=== PATIENT | female | born 1960 | race Two or more races ===

== ENCOUNTER 2017-07-15 16:12 | Inpatient (IN) | payer OTHER ==
[~2017-07-15] VITALS: Ht 162.6 cm; Wt 96.2 kg
--- NOTE | 2017-07-15 16:39 | NUR ---
PT IS IN ROOM 32B. DR CASTRO EVALUATED THE PT.
[2017-07-15] MEDS ORDERED: CYCL10TA9 PO (17:12)
[2017-07-15] MEDS ORDERED: GABA-532 PO (17:12)
[2017-07-15] MEDS ORDERED: INSU100V28 SQ (17:12)
[2017-07-15] MEDS ORDERED: HYDR-552 PO (17:12)
[2017-07-15] MEDS ORDERED: INSU100V7 SQ (17:12)
[2017-07-15] MEDS ORDERED: NPH,100I SQ (17:12)
[2017-07-15] MEDS ORDERED: CLIN300C11 PO (17:12)
--- NOTE | 2017-07-15 18:45 | NUR ---
REPORT GIVEN TO MHU RN BLAYNE, PT IS RESTING IN BED COMFORTABLY. NO S/S OF ACUTE DISTRESS. CONTINUE TO MONITOR THE PT.
--- NOTE | 2017-07-15 19:21 | NUR ---
REPORT GIVEN TO DOLPHIN TRAINER RN
--- NOTE | 2017-07-15 19:38 | NUR ---
Pt is noted resting in bed with no s/s off distress as report is received from the off going nurse that pt is been admitted as he is on a 5150 Hold for Depression with Suicidal Ideation and came from the another facility. His care continue as he will be rolled up to the 4th floor.
--- NOTE | 2017-07-15 19:50 | NUR ---
Pt is been rolled up to the 4th floor with no s/s off distress or c/o/
[2017-07-15 20:00] VITALS: BP 125/74
[2017-07-15] MEDS ORDERED: ACETAMINOPHEN 325 MG TABLET PO PRN (21:00)
[2017-07-15] MEDS ORDERED: MAGNESIUM HYDROXIDE 30 ML LIQUID UDC PO PRN (21:00)
[2017-07-15] MEDS ORDERED: MAG HYDROX/AL HYDROX/SIMETH 30 ML LIQUID UDC PO PRN (21:00)
--- NOTE | 2017-07-15 22:00 | NUR ---
received to care, from the emergency room, on a 72 hour hold for danger to self. according to the chart, he lives by himself. recently estranged from his . he was found last night by his family lying down 2 empty pill bottles with the labels removed, and under the influence of alcohol. he is currently going through a divorce. he has been from his for 3 years, but she recently filed for divorce. he was at a family gathering yesterday, and tried to reconcile with his , but he stormed out of there abruptly, and went home. his niece reported that he stated he was going to kill himself on 07/15, but decided to do it sooner, because "nobody loves me". the daughter also reported that he threatened to kill himself with "a bullet". pt was also hospitalized last week, after a previous serious overdose attempt. upon arrival on the unit, he was very pleasant and cooperative. denied any suicidal ideations now, or in the past, stating only that he "got drunk" pt agreed to contract for safety. did not want his family notified at this time. as of 2199, he appears to be asleep, in bed. no distress noted. will continue to monitor closely.
[2017-07-15] MEDS ORDERED: TEMAZEPAM 7.5 MG CAPSULE PO PRN (22:15)
[2017-07-15] MEDS ORDERED: CLONAZEPAM 0.5 MG TABLET PO PRN (22:15)
[2017-07-15] MEDS ORDERED: HYDROCODONE/APAP 5-325MG TABLET PO PRN (23:30)
[2017-07-15] MEDS ORDERED: DEXTROSE 50% 50 ML DISP.SYRIN IV PRN (23:30)
[2017-07-16] MEDS ORDERED: TRAM50TA2 PO (00:15)
[2017-07-16] MEDS: BLOOD SUGAR DIAGNOSTIC 1 EACH STRIP VI SCH ×4 (06:45→21:30)
--- NOTE | 2017-07-16 06:52 | NUR ---
slept 7.45 hours, total. is now awake. assisted with am care, and shower. no distress noted.
[2017-07-16 07:30] VITALS: BP 133/82
[2017-07-16 08:23] LABS: THYROID STIMULATING HORMONE 1.022 mIU/mL (0.358-3.740)
[2017-07-16] MEDS: INSULIN REGULAR, HUMAN 300 UNIT/3 ML VIAL SQ PRN ×4 (08:31→21:23)
[2017-07-16 08:34] LABS: BASOPHILS % (AUTO) 0.3 % (0.0-2.0); EOSINOPHILS # (AUTO) 0.2 K/uL (0.0-0.7); EOSINOPHILS % (AUTO) 3.1 % (0.0-7.0); HEMATOCRIT 47.4 % (31.2-41.9); HEMOGLOBIN 16.4 g/dL (10.9-14.3); MEAN CORPUSCULAR HEMOGLOBIN 31.3 uug (24.7-32.8); MEAN CORPUSCULAR HGB CONC 35 g/dL (32.3-35.6); MEAN CORPUSCULAR VOLUME 90.6 fL (75.5-95.3); MONOCYTES # (AUTO) 0.5 K/uL (2.0-10.0); MONOCYTES % (AUTO) 6.4 % (0.0-11.0); NEUTROPHILS # (AUTO) 4.9 K/uL (1.8-8.9); NEUTROPHILS % (AUTO) 64.2 % (38.5-71.5); PLATELET COUNT (AUTO) 288 K/uL (179-408); RED BLOOD CELL COUNT(AUTO) 5.23 MIL/uL (3.63-4.92); WHITE BLOOD COUNT (AUTO) 7.7 K/uL (3.8-11.8)
[2017-07-16 08:56] LABS: BILIRUBIN,TOTAL 0.5 mg/dL (0.2-1.0); CREATININE 0.9 mg/dL (0.6-1.3); PHOSPHOROUS 3.2 mg/dL (2.5-4.9); POTASSIUM 4.8 mmol/L (3.5-5.1); TOTAL PROTEIN, SERUM 7.1 g/dL (6.4-8.2)
[2017-07-16] MEDS: GABAPENTIN 100 MG CAPSULE PO SCH ×3 (09:00→17:20)
[2017-07-16] MEDS: DULOXETINE 30 MG CAPSULE.DR PO SCH (12:05)
--- NOTE | 2017-07-16 13:13 | NUR ---
Initial DC Plan:Patient currently resides in his home [address] [place] [address] ([phone]) alone.Patient stated that he wants to go back to his home. SW will follow up with MD and patient to discuss most appropriate discharge plans. SW will form a safe and proper discharge
[2017-07-16 17:23] VITALS: BP 114/73
[2017-07-16 20:00] VITALS: BP 97/44
--- NOTE | 2017-07-16 22:00 | NUR ---
received to care, lying in bed, but pleasant when approached. compliant with medications, and staff direction. as of 2199, he appears to be asleep. no distress noted. will continue to monitor closely.
[2017-07-17] MEDS: BLOOD SUGAR DIAGNOSTIC 1 EACH STRIP VI SCH ×4 (06:35→20:10)
[2017-07-17 07:30] VITALS: BP 114/67
[2017-07-17] MEDS: GABAPENTIN 100 MG CAPSULE PO SCH ×3 (08:41→17:00)
[2017-07-17] MEDS: DULOXETINE 30 MG CAPSULE.DR PO SCH (08:41)
[2017-07-17] MEDS: METFORMIN HCL 500 MG TABLET PO SCH ×2 (08:41→17:00)
[2017-07-17] MEDS: glipiZIDE 5 MG TABLET PO SCH ×2 (08:42→17:00)
[2017-07-17] MEDS: INSULIN REGULAR, HUMAN 300 UNIT/3 ML VIAL SQ PRN ×4 (08:48→20:29)
--- NOTE | 2017-07-17 14:58 | NUR ---
Patient is observed in dayroom watching TV, alert and oriented x4 and indicated that he is doing well. Denies HI/SI, states "people says it but not me," no AVH noted and c/o pain to his legs 10. Patient remains pleasant during assessment with no apparent distress noted, will continue to monitor for safety and support.
[2017-07-17 15:47] VITALS: BP 107/73
--- NOTE | 2017-07-17 20:00 | NUR ---
PT RECEIVED IN HIS ROOM, AWAKE, WITHDRAWN, NO INTERACTION WITH PEERS NOTED, DENIES SI/HI/PAIN, ABLE TO MAKE NEEDS KNOWN, WILL CONTINUE TO MONITOR CLOSELY.
[2017-07-17 20:41] VITALS: BP 103/66
[2017-07-18] MEDS: BLOOD SUGAR DIAGNOSTIC 1 EACH STRIP VI SCH ×4 (06:49→20:27)
[2017-07-18 07:30] VITALS: BP 135/86
[2017-07-18] MEDS: glipiZIDE 5 MG TABLET PO SCH ×2 (07:44→17:18)
[2017-07-18] MEDS: METFORMIN HCL 500 MG TABLET PO SCH ×2 (08:19→17:18)
[2017-07-18] MEDS: GABAPENTIN 100 MG CAPSULE PO SCH ×3 (08:19→17:18)
[2017-07-18] MEDS: DULOXETINE 30 MG CAPSULE.DR PO SCH (08:19)
[2017-07-18] MEDS: INSULIN REGULAR, HUMAN 300 UNIT/3 ML VIAL SQ PRN ×4 (08:20→20:30)
--- NOTE | 2017-07-18 08:42 | NUR ---
Firearms Report: Reel System Operator completed and submitted [facility] Firearms Report on 07/18/17.
[2017-07-18] MEDS ORDERED: INSULIN REGULAR, HUMAN 300 UNITS/3 ML VIAL SQ PRN (11:15)
[2017-07-18] MEDS ORDERED: DEXTROSE 50% 50 ML DISP.SYRIN IV PRN (11:15)
[2017-07-18 15:12] VITALS: BP 122/75
--- NOTE | 2017-07-18 15:25 | NUR ---
UR Note: Left message for [employer] [employer] [facility] ([phone]) informing her that MD progress notes are not in yet. Authorization#[id number] through 07/18/17. Doormaker will follow-up and fax clinicals ([phone]) when progress notes are available.
--- NOTE | 2017-07-18 20:00 | NUR ---
PT RECEIVED IN HIS ROOM VISITING WITH FAMILY MEMBERS, AND LATER IN THE DAY ROOM WATCHING TV AND SOCIALIZING WITH SELECTED PEER, PT IS MORE PLEASANT, MORE TALKATIVE, MAKING NEEDS KNOWN, DENIES SI/HI, COMPLIANT WITH TREATMENT, BEDTIME MEDS GIVEN, CONTINUE TO MONITOR CLOSELY.
[2017-07-18 20:41] VITALS: BP 128/70
[2017-07-19] MEDS: BLOOD SUGAR DIAGNOSTIC 1 EACH STRIP VI SCH ×4 (06:40→21:16)
[2017-07-19 07:30] VITALS: BP 117/73
--- NOTE | 2017-07-19 08:05 | NUR ---
UR Note: Faxed clinicals to [facility] ([phone]). Authorization#:[id number] through 07/18/17. Awaiting further authorization.
[2017-07-19] MEDS: GABAPENTIN 100 MG CAPSULE PO SCH ×3 (08:25→17:37)
[2017-07-19] MEDS: glipiZIDE 5 MG TABLET PO SCH (08:25)
[2017-07-19] MEDS: METFORMIN HCL 500 MG TABLET PO SCH ×2 (08:25→17:37)
[2017-07-19] MEDS: DULOXETINE 30 MG CAPSULE.DR PO SCH (08:25)
[2017-07-19] MEDS: INSULIN REGULAR, HUMAN 300 UNIT/3 ML VIAL SQ PRN ×2 (08:27→12:32)
[2017-07-19 08:58] LABS: BASOPHILS % (AUTO) 0.3 % (0.0-2.0); EOSINOPHILS # (AUTO) 0.1 K/uL (0.0-0.7); EOSINOPHILS % (AUTO) 0.9 % (0.0-7.0); HEMATOCRIT 47.5 % (31.2-41.9); HEMOGLOBIN 16.2 g/dL (10.9-14.3); LYMPHOCYTES # (AUTO) 2.4 K/uL (20.0-40.0); LYMPHOCYTES % (AUTO) 17.4 % (20.5-51.5); MEAN CORPUSCULAR HEMOGLOBIN 30.6 uug (24.7-32.8); MEAN CORPUSCULAR HGB CONC 34 g/dL (32.3-35.6); MEAN CORPUSCULAR VOLUME 89.8 fL (75.5-95.3); MONOCYTES # (AUTO) 0.9 K/uL (2.0-10.0); MONOCYTES % (AUTO) 6.5 % (0.0-11.0); NEUTROPHILS # (AUTO) 10.4 K/uL (1.8-8.9); NEUTROPHILS % (AUTO) 74.9 % (38.5-71.5); PLATELET COUNT (AUTO) 299 K/uL (179-408); RED BLOOD CELL COUNT(AUTO) 5.29 MIL/uL (3.63-4.92)
[2017-07-19 09:07] LABS: BILIRUBIN,TOTAL 0.9 mg/dL (0.2-1.0); CREATININE 0.8 mg/dL (0.6-1.3); MAGNESIUM 1.8 mg/dL (1.8-2.4); PHOSPHOROUS 3.2 mg/dL (2.5-4.9); POTASSIUM 4.6 mmol/L (3.5-5.1); TOTAL PROTEIN, SERUM 7.7 g/dL (6.4-8.2)
[2017-07-19 09:12] LABS: WHITE BLOOD COUNT (AUTO) 13.9 K/uL (3.8-11.8)
[2017-07-19 15:00] VITALS: BP 118/73
--- NOTE | 2017-07-19 16:01 | NUR ---
UR Note: Received voicemail from [facility], Courtney Tobin ([phone]). Left message to discuss PHP options for pt upon discharge. Will follow-up.
[2017-07-19] MEDS: glipiZIDE 10 MG TABLET PO SCH (17:36)
--- NOTE | 2017-07-19 18:37 | NUR ---
PATIENT VISIBLE ON UNIT AND INTERACTING WITH SELECT PEERS IN DAY ROOM DENIES S.I. OR ANY PLANS TO HURT SELF OR ANYONE ELSE . ACCUCHECKS WNL WITH SS COVERAGE NEEDED .CONTINUE TO MONITOR FOR SAFETY
[2017-07-19 19:36] LABS: *BILIRUBIN,URIN NEGATIVE (NEGATIVE); *BLOOD, URINE NEGATIVE (NEGATIVE); *CLARITY,URINE CLEAR (CLEAR); *COLOR,URINE YELLOW (YELLOW); *KETONES,URINE TRACE (NEGATIVE); *PROTEIN,URINE TRACE (NEGATIVE); *UROBILINOGEN,URINE 0.2 E.U./dl (NORMAL); LEUKOCYTE ESTERASE ,URINE NEGATIVE (NEGATIVE); NITRITE, URINE NEGATIVE (NEGATIVE); PH,URINE 5.5 (5.0-8.0); UGLUCOSE NEGATIVE (NEGATIVE)
[2017-07-19 19:41] LABS: BACTERIA,URINE FEW /HPF (NONE SEEN); RBC,URINE 0-3 /HPF (0-3); SQUAMOUS EPITHELIAL CELL,UR FEW /HPF (NONE SEEN); WBC,URINE 0-3 /HPF (0-3)
[2017-07-19 20:36] VITALS: BP 143/85
[2017-07-20] MEDS: BLOOD SUGAR DIAGNOSTIC 1 EACH STRIP VI SCH ×4 (06:41→21:04)
[2017-07-20 07:30] VITALS: BP 135/74
[2017-07-20] MEDS: METFORMIN HCL 500 MG TABLET PO SCH ×2 (08:42→17:39)
[2017-07-20] MEDS: DULOXETINE 30 MG CAPSULE.DR PO SCH (08:42)
[2017-07-20] MEDS: glipiZIDE 10 MG TABLET PO SCH ×2 (08:42→17:40)
[2017-07-20] MEDS: GABAPENTIN 100 MG CAPSULE PO SCH ×3 (08:42→17:39)
[2017-07-20] MEDS: INSULIN REGULAR, HUMAN 300 UNIT/3 ML VIAL SQ PRN ×3 (08:44→17:42)
[2017-07-20 09:52] LABS: CREATININE 0.7 mg/dL (0.6-1.3); POTASSIUM 4.1 mmol/L (3.5-5.1)
[2017-07-20 10:29] LABS: BASOPHILS % (AUTO) 0.4 % (0.0-2.0); EOSINOPHILS # (AUTO) 0.2 K/uL (0.0-0.7); EOSINOPHILS % (AUTO) 1.6 % (0.0-7.0); HEMATOCRIT 48.5 % (31.2-41.9); HEMOGLOBIN 16.3 g/dL (10.9-14.3); LYMPHOCYTES # (AUTO) 2.3 K/uL (20.0-40.0); LYMPHOCYTES % (AUTO) 20.1 % (20.5-51.5); MEAN CORPUSCULAR HEMOGLOBIN 30.4 uug (24.7-32.8); MEAN CORPUSCULAR HGB CONC 34 g/dL (32.3-35.6); MEAN CORPUSCULAR VOLUME 90.7 fL (75.5-95.3); MONOCYTES # (AUTO) 0.8 K/uL (2.0-10.0); MONOCYTES % (AUTO) 7.1 % (0.0-11.0); NEUTROPHILS % (AUTO) 70.8 % (38.5-71.5); PLATELET COUNT (AUTO) 285 K/uL (179-408); RED BLOOD CELL COUNT(AUTO) 5.35 MIL/uL (3.63-4.92); WHITE BLOOD COUNT (AUTO) 11.2 K/uL (3.8-11.8)
[2017-07-20] MEDS ORDERED: DEXTROSE 50% 50 ML DISP.SYRIN IV PRN (14:15)
[2017-07-20 17:03] VITALS: BP 123/73
[2017-07-20 20:00] VITALS: BP 128/76
[2017-07-20] MEDS: INSULIN REGULAR, HUMAN 300 UNITS/3 ML VIAL SQ PRN (21:08)
[2017-07-21] MEDS: BLOOD SUGAR DIAGNOSTIC 1 EACH STRIP VI SCH ×4 (06:40→20:06)
[2017-07-21 07:30] VITALS: BP 121/61
[2017-07-21] MEDS: GABAPENTIN 100 MG CAPSULE PO SCH ×3 (08:13→16:44)
[2017-07-21] MEDS: DULOXETINE 30 MG CAPSULE.DR PO SCH ×2 (08:13→16:44)
[2017-07-21] MEDS: glipiZIDE 10 MG TABLET PO SCH ×2 (08:13→16:46)
[2017-07-21] MEDS: METFORMIN HCL 500 MG TABLET PO SCH ×2 (08:13→17:02)
[2017-07-21] MEDS: INSULIN REGULAR, HUMAN 300 UNIT/3 ML VIAL SQ PRN ×3 (08:14→16:43)
[2017-07-21 17:22] VITALS: BP 138/72
[2017-07-21] MEDS: INSULIN REGULAR, HUMAN 300 UNITS/3 ML VIAL SQ PRN (20:09)
[2017-07-22] MEDS: BLOOD SUGAR DIAGNOSTIC 1 EACH STRIP VI SCH ×4 (06:45→20:53)
[2017-07-22 08:02] VITALS: BP 118/52
[2017-07-22] MEDS: INSULIN REGULAR, HUMAN 300 UNIT/3 ML VIAL SQ PRN ×2 (08:24→17:27)
[2017-07-22] MEDS: DULOXETINE 30 MG CAPSULE.DR PO SCH ×2 (08:45→16:04)
[2017-07-22] MEDS: METFORMIN HCL 500 MG TABLET PO SCH ×2 (08:45→17:02)
[2017-07-22] MEDS: GABAPENTIN 100 MG CAPSULE PO SCH ×3 (08:45→16:04)
[2017-07-22] MEDS: glipiZIDE 10 MG TABLET PO SCH ×2 (08:58→16:34)
[2017-07-22 16:07] VITALS: BP 138/82
[2017-07-22 21:19] VITALS: BP 120/71
[2017-07-23] MEDS: BLOOD SUGAR DIAGNOSTIC 1 EACH STRIP VI SCH ×4 (06:38→21:47)
[2017-07-23 07:30] VITALS: BP 109/71
[2017-07-23] MEDS: glipiZIDE 10 MG TABLET PO SCH ×2 (08:18→17:02)
[2017-07-23] MEDS: METFORMIN HCL 500 MG TABLET PO SCH ×2 (08:18→17:02)
[2017-07-23] MEDS: DULOXETINE 30 MG CAPSULE.DR PO SCH ×3 (08:19→20:36)
[2017-07-23] MEDS: GABAPENTIN 100 MG CAPSULE PO SCH ×3 (08:19→17:02)
[2017-07-23] MEDS: INSULIN REGULAR, HUMAN 300 UNITS/3 ML VIAL SQ PRN (08:26)
[2017-07-23] MEDS: INSULIN REGULAR, HUMAN 300 UNIT/3 ML VIAL SQ PRN ×3 (08:43→17:01)
--- NOTE | 2017-07-23 08:54 | NUR ---
UR Note: STEPHANIE spoke with Injection Molding Operator Linn at [facility] (ph:[phone]) for concurrent review. Provided clinicals, treatment plan and D/C plan. AUTH#[id number] for 3 additional days with concurrent review on 07/26/16. STEPHANIE will follow-up.
[2017-07-23] MEDS ORDERED: SITAGLIPTIN PHOSPHATE 50 MG TABLET PO SCH (09:00)
[2017-07-23] MEDS: LINAGLIPTIN 5 MG TABLET PO SCH (10:04)
[2017-07-23 16:00] VITALS: BP 136/80
[2017-07-23 20:15] VITALS: BP 140/75
[2017-07-24] MEDS: BLOOD SUGAR DIAGNOSTIC 1 EACH STRIP VI SCH ×4 (06:49→20:45)
[2017-07-24] MEDS: LINAGLIPTIN 5 MG TABLET PO SCH (07:04)
[2017-07-24] MEDS: glipiZIDE 10 MG TABLET PO SCH ×2 (07:04→17:39)
[2017-07-24] MEDS: METFORMIN HCL 500 MG TABLET PO SCH ×2 (07:04→17:39)
[2017-07-24 08:00] VITALS: BP 141/82
[2017-07-24] MEDS: GABAPENTIN 100 MG CAPSULE PO SCH ×3 (08:24→17:39)
[2017-07-24] MEDS: DULOXETINE 30 MG CAPSULE.DR PO SCH ×2 (08:24→20:39)
[2017-07-24] MEDS: INSULIN REGULAR, HUMAN 300 UNIT/3 ML VIAL SQ PRN ×3 (08:28→17:42)
[2017-07-24 16:00] VITALS: BP 129/71
[2017-07-24 20:06] VITALS: BP 123/79
[2017-07-25] MEDS: BLOOD SUGAR DIAGNOSTIC 1 EACH STRIP VI SCH ×2 (06:35→11:45)
--- NOTE | 2017-07-25 06:46 | NUR ---
GPS: Renitaian calm and cooperative with medications care. blood sugar 169 mg/dl this morning. slept 05:30 hrs through the night. no agitation noted. continue plan of care.
[2017-07-25 07:30] VITALS: BP 124/76
[2017-07-25] MEDS: INSULIN REGULAR, HUMAN 300 UNIT/3 ML VIAL SQ PRN ×2 (08:32→11:54)
[2017-07-25] MEDS: METFORMIN HCL 500 MG TABLET PO SCH (08:33)
[2017-07-25] MEDS: glipiZIDE 10 MG TABLET PO SCH (08:33)
[2017-07-25] MEDS: LINAGLIPTIN 5 MG TABLET PO SCH (08:33)
[2017-07-25] MEDS: DULOXETINE 30 MG CAPSULE.DR PO SCH (08:33)
[2017-07-25] MEDS: GABAPENTIN 100 MG CAPSULE PO SCH ×2 (08:39→12:22)
--- NOTE | 2017-07-25 11:43 | NUR ---
DC Note: Patient will be discharged home with his daughter [[address], [place] [address]; [phone]] via private transportation at 1 pm. Spoke with pts daughters Lidia and Sharon who are willing to provide transportation and are aware and agreeable with discharge plans. Patient is aware and agreeable with discharge plans. Patient will make an appointment to follow-up with his Primary Care Physician Dr. Jaskaran Levine [[address], [place] [address]; [phone]]. Pt also has a follow-up appointment with his Psychiatrist Dr. Javi Nolasco [[address], [address] [place] [address]; ] on August 10, 2017 at 10:15am. Patient also has a follow-up appointment with Kami Bo LCSW [[facility][1] [address] , [place] [address]; ] on August 22, 2017 at 11:45am. Patient was provided with a brief substance abuse intervention and referred to [facility] , [facility] , and [facility] . Pt was also provided with additional outpatient mental health services. The List includes: [facility] Crisis Line; ; Leanna Rachel ; National Suicide Prevention Lifeline . Addendum: 07/25/17 at 1148 by AMERICO BROWN Pt was also encouraged to present to [facility] at 9am for intake screening. Addendum: 07/25/17 at 1221 by AMERICO MORAN SW Card Services Specialist received call from [place] After[facility] Coordinator informing that pt must call [employer] ([phone]) to schedule Psychiatrist and Therapist appointments for 5 days within discharge. Pt made aware of changes and is agreeable. Per Courtney ([phone]), all prior follow-up appointments were cancelled.
== END 2017-07-25 13:30 | disposition home or self-care (01) | DRG 885 ==
LOC: ER 16:12 → GPSOV 19:44 → GPS 21:34
PROVIDERS: ADMIT Psychiatry & Neurology Psychiatry; ATTEND Internal Medicine
DX: F33.2 Major depressive disorder, recurrent severe without psychotic features (principal); E11.65 Type 2 diabetes mellitus with hyperglycemia; D75.1 Secondary polycythemia; F10.20 Alcohol dependence, uncomplicated; T50.902D Poisoning by unspecified drugs, medicaments and biological substances, intentional self-harm, subsequent encounter; Z96.651 Presence of right artificial knee joint; Z79.899 Other long term (current) drug therapy; G89.29 Other chronic pain; Z79.4 Long term (current) use of insulin; I10 Essential (primary) hypertension; M25.562 Pain in left knee; R19.7 Diarrhea, unspecified
CPT/HCPCS: 36415; 70030-TC; 71010; 83735; 84100; 84443; 85025; 87086; 93005; A4663; J1815